=== PATIENT | female | born 1985 | race Caucasian/White ===

== ENCOUNTER 2020-06-08 09:05 | Outpatient (CLI) | payer OTHER, SELFPAY | END 2020-06-08 09:06 | disposition home or self-care (01) | LOC: ANHBWCAUD 09:08 | PROVIDERS: PCP Family Medicine; Visit Provider Family Medicine | DX: H91.93 Unspecified hearing loss, bilateral (principal) | CPT/HCPCS: 92553; 92555; 92567 ==